=== PATIENT | female | born 1970 | race Caucasian/White ===

== ENCOUNTER 2017-09-01 13:34 | Emergency (ER) | payer OTHER ==
[~2017-09-01] VITALS: Ht 165.1 cm; Wt 103.4 kg
[~2017-09-01 13:34] MED LIST: BENICAR HCT 401 EAC1 PO; BUPROPION HCL100 MG PO; CITALOPRAM HBR40 MG PO; DICLOFENAC SODI75 MG PO; FENOFIBRATE160 MG PO; FIORICET 50-321 EACH PO; FLEXERIL10 MG PO; HYOSCYAMINE0.125 M1 SL; NAPROSYN500 MG PO; NORCO 5-325 TA1 EACH PO; OMEPRAZOLE20 MG PO; SINGULAIR10 MG PO; WELLBUTRIN SR100 MG PO
[2017-09-01] MEDS ORDERED: KETOROLAC TROME10 MG PO (13:57)
[2017-09-01] MEDS ORDERED: ALPRAZOLAM0.5 MG PO (13:57)
[2017-09-01] MEDS ORDERED: LOSARTAN-HCTZ1 EAC1 PO (13:58)
[2017-09-01] MEDS ORDERED: FLUOXETINE HCL60 MG PO (13:58)
== END 2017-09-01 15:10 | disposition home or self-care (01) ==
LOC: ED 13:34
DX: G43.909 Migraine, unspecified, not intractable, without status migrainosus (principal); F32.9 Major depressive disorder, single episode, unspecified; I10 Essential (primary) hypertension; Z88.0 Allergy status to penicillin; Z88.2 Allergy status to sulfonamides; Z88.5 Allergy status to narcotic agent; Z79.899 Other long term (current) drug therapy
CPT/HCPCS: 96374; 96375; 99282; J1200; J2405; J2765

== ENCOUNTER 2018-08-10 11:54 | Emergency (ER) | payer OTHER ==
[~2018-08-10] VITALS: Ht 165.1 cm; Wt 103.4 kg
[~2018-08-10 11:54] MED LIST changes: +ALPRAZOLAM0.5 MG PO; +FLUOXETINE HCL60 MG PO; +KETOROLAC TROME10 MG PO; +LOSARTAN-HCTZ1 EAC1 PO
[2018-08-10] MEDS ORDERED: MAXALT10 MG PO (13:33)
== END 2018-08-10 13:43 | disposition home or self-care (01) ==
LOC: ED 11:54
DX: G43.909 Migraine, unspecified, not intractable, without status migrainosus (principal); I10 Essential (primary) hypertension; F32.9 Major depressive disorder, single episode, unspecified; Z90.49 Acquired absence of other specified parts of digestive tract; Z88.0 Allergy status to penicillin; Z88.1 Allergy status to other antibiotic agents; Z88.5 Allergy status to narcotic agent; Z88.2 Allergy status to sulfonamides; Z79.899 Other long term (current) drug therapy
CPT/HCPCS: 96372; 99283-25; J1200; J1630; J1885

== ENCOUNTER 2020-05-29 18:11 | Emergency (ER) | payer OTHER ==
[~2020-05-29] VITALS: Ht 165.1 cm; Wt 114.8 kg
[~2020-05-29 18:11] MED LIST changes: +MAXALT10 MG PO
--- OUTSIDE RECORDS SUMMARY | 2020-05-29 18:14 | XMS ---
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 Elen has no Care Guidelines for this patient. Marilyn VISIT COUNT (12 MO.) 1 JORI Butt TOTAL 1 NOTE: Visits indicate total known visits. ED/UCC VISIT TRACKING (12 MO.) 05/29/2020 18:12 J[facility]I [place] TYPE: Emergency COMPLAINT: - HIGH B/P, NAUSEA, HEADACHE INPATIENT VISIT TRACKING (12 MO.) No inpatient visits to display in this time frame [email or web address]
[2020-05-29] MEDS ORDERED: ISOSORBIDE MONO60 MG PO (18:32)
[2020-05-29] MEDS ORDERED: METOPROLOL SUC100 MG PO (18:32)
[2020-05-29] MEDS ORDERED: ASPIRIN325 MG PO (18:33)
--- NOTE | 2020-05-30 11:01 | EKG ---
[facility] [address] [place] [address] Signed Sinus bradycardia Nonspecific T wave abnormality Prolonged QT Abnormal ECG No previous ECGs available Confirmed by EDUARDO COHEN DO ([id number]) on 05/30/2020 11:00:55 AM Electronically Signed By: EDUARDO COHEN DO 05/30/20 110 PATIENT NAME: JENN MCLEOD Electrocardiogram DATE OF : 68 PHYSICIAN: EDUARDO COHEN DO REPORT #: [id number] REPORT IS CONFIDENTIAL AND NOT TO BE RELEASED WITHOUT AUTHORIZATION
== END 2020-05-29 21:02 | disposition home or self-care (01) ==
LOC: ED 18:11
DX: I10 Essential (primary) hypertension (principal); R51.9 Headache, unspecified; F32.9 Major depressive disorder, single episode, unspecified; G43.909 Migraine, unspecified, not intractable, without status migrainosus; Z88.0 Allergy status to penicillin; Z88.8 Allergy status to other drugs, medicaments and biological substances; Z88.5 Allergy status to narcotic agent; Z88.2 Allergy status to sulfonamides; Z79.899 Other long term (current) drug therapy
CPT/HCPCS: 70450; 80053; 85025; 85651; 93005; 93010; 96374; 96375; 99284-25; J1200; J1885; J2765

== ENCOUNTER 2021-08-18 03:26 | Observation (INO) | payer OTHER ==
[~2021-08-18] VITALS: Ht 165.1 cm; Wt 117.8 kg
[~2021-08-18 03:26] MED LIST changes: +ASPIRIN325 MG PO; +CYCLOBENZAPRINE10 MG PO; -FLEXERIL10 MG PO; +ISOSORBIDE MONO60 MG PO; +METOPROLOL SUC100 MG PO
--- OUTSIDE RECORDS SUMMARY | 2021-08-18 03:34 | XMS ---
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 EReese VISIT COUNT (12 MO.) 1 JORI Butt TOTAL 1 NOTE: Visits indicate total known visits. ED/UCC VISIT TRACKING (12 MO.) 08/18/2021 03:27 [facility] [place] TYPE: Emergency COMPLAINT: - RIGHT SIDE PAIN, NAUSEA, VOMITING INPATIENT VISIT TRACKING (12 MO.) No inpatient visits to display in this time frame [email or web address]
[2021-08-18] MEDS ORDERED: LOSARTAN POTAS100 MG PO (03:46)
[2021-08-18] MEDS ORDERED: ZOLPIDEM TARTRA10 MG PO (08:25)
[2021-08-18] MEDS ORDERED: FLUOXETINE HCL20 MG PO (08:26)
[2021-08-18] MEDS ORDERED: ISOSORBIDE MON120 MG PO (08:27)
[2021-08-18] MEDS ORDERED: TRIAMTERENE-HC1 EAC2 PO (08:42)
[2021-08-18] MEDS ORDERED: OMEPRAZOLE40 MG PO (08:42)
[2021-08-20] MEDS ORDERED: METOPROLOL SUCC25 MG PO (13:10)
== END 2021-08-20 13:55 | disposition home or self-care (01) ==
LOC: ED 03:26 → MS 03:28
PROVIDERS: ADMIT Internal Medicine; ATTEND Internal Medicine
DX: N17.9 Acute kidney failure, unspecified (principal); E86.0 Dehydration; I10 Essential (primary) hypertension; F39 Unspecified mood [affective] disorder; G43.909 Migraine, unspecified, not intractable, without status migrainosus; K21.9 Gastro-esophageal reflux disease without esophagitis; Z88.0 Allergy status to penicillin; Z88.1 Allergy status to other antibiotic agents; Z88.2 Allergy status to sulfonamides; Z88.5 Allergy status to narcotic agent; Z20.822 Contact with and (suspected) exposure to COVID-19
CPT/HCPCS: 36415; 74176; 80048; 80076; 81001; 82570; 83880; 84156; 85025; C9803; J1170; J1885; J2405; J7030; J7121; U0003

== ENCOUNTER 2022-12-22 06:05 | Day surgery (SDC) | payer OTHER ==
[2022-10-24 16:14] VITALS: BP 160/85
[2022-12-19 14:14] VITALS: BP 129/76
[~2022-12-22] VITALS: Ht 165.1 cm; Wt 122.7 kg
[~2022-12-22 06:05] MED LIST changes: +BUTALB-ACETAMI1 EACH PO; +COZAAR100 MG PO; +FLUOXETINE HCL20 MG PO; +HYDRALAZINE HCL25 MG PO; +HYDROCHLOROTHIA25 MG PO; +ISOSORBIDE MON120 MG PO; +K-TAB ER20 MEQ PO; +LOSARTAN POTAS100 MG PO; +METFORMIN HCL500 MG PO; +METOPROLOL SUCC25 MG PO; +MOVE FREE ULTR1 EAC2 PO; +OMEPRAZOLE40 MG PO; +OSTERA TABLET1 EACH PO; +TORSEMIDE10 MG PO; +TRIAMTERENE-HC1 EAC2 PO; +ZOLPIDEM TARTRA10 MG PO
[2022-12-22 06:19] VITALS: BP 133/78
--- NOTE | 2022-12-22 08:16 | NUR ---
12/22/22 0816 Galina Jama 0809-PATIENT ARRIVED TO PACU ON RA RR EVEN PATIENT AWAKE DROWSY DENIES PAIN OR NAUSEA. REPORTS "JUST TIRED" IVF INFUSING. 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 NO DRAINAGE TO STEPHEN PAD.
[2022-12-22 08:40] VITALS: BP 106/68
--- NOTE | 2022-12-22 14:25 | OR ---
[address] [address] Signed DATE OF OPERATION: 12/22/2022 SURGEON: Amandeep Lai MD Patient of Dr. Lai. PREOPERATIVE DIAGNOSIS: Vaginal mass. POSTOPERATIVE DIAGNOSIS: Vaginal mass. PROCEDURE: Excision of vaginal mass. PRODUCT APPLICATIONS ENGINEER: Essence Puckett DO ANESTHESIA: MAC. ESTIMATED BLOOD LOSS: Less than 5 mL. SPECIMEN: Vaginal mass. DRAINS: None. Cultures sent for aerobic and anaerobic. PACKING: None. FINDINGS: External genitalia normal, cervix normal, vagina normal with approximately 1.5 cm firm mass with thick stalk arising from the vaginal mucosa at about 10 o'clock deep in the vagina near the cervix. Pus was noted in the mass during the excision. COMPLICATIONS: None. Electronically Signed By: AMANDEEP LAI MD 12/22/22 1425 PATIENT NAME: JENN MCLEOD OPERATIVE REPORT DATE OF : 68 REPORT #: [id number] PHYSICIAN: AMANDEEP LAI MD PCP: ANNIKA AVILES PA-C REPORT IS CONFIDENTIAL AND NOT TO BE RELEASED WITHOUT AUTHORIZATION [facility] [address] [place] [id number] Signed DESCRIPTION OF PROCEDURE: The patient was brought to the operating room, placed in the supine position. After adequate MAC was obtained, the patient was placed in dorsal lithotomy position, prepped and draped in usual sterile fashion. Straight cath was used to empty her bladder. Weighted speculum was placed in the vagina and [place] retractors inserted in the vagina to expose the vaginal mass. The vaginal mass was examined and 0 Monocryl Endoloop was then used to loop the mass at the base of the stalk in the vaginal mucosa and was tightened in place. The mass was then excised using curved Ace scissors. Small amount of pus was noted, so the pus was cultured for aerobic and anaerobic bacteria. A uphpbo-gu-cdoai stitch of 2-0 Vicryl was used superficially to close and support the Endoloop. Both tags were then cut with suture scissors. Area observed and noted to have good hemostasis and good closure noted. At this point, all instruments were removed from the vagina. The patient tolerated the procedure well, went to the recovery room in good condition. The sponge, needle and instrument count was correct at the end of procedure. Cultures sent to the lab and the specimen sent to pathology. Amandeep Lai MD MJB/MODL /[id number] cc: MI Urias Copies: ~ Electronically Signed By: AMANDEEP LAI MD 12/22/22 1425 PATIENT NAME: JENN MCLEOD OPERATIVE REPORT DATE OF : [birth year] REPORT #: [id number] PHYSICIAN: AMANDEEP LAI MD PCP: ANNIKA AVILES PA-C REPORT IS CONFIDENTIAL AND NOT TO BE RELEASED WITHOUT AUTHORIZATION
--- NOTE | 2022-12-26 15:44 | PATH ---
[facility] [address] [place], [place] [address] Signed SPECIMEN(S): A VAGINAL MASS SPECIMEN SOURCE: A. VAGINAL MASS CLINICAL HISTORY: Excision of vaginal cystic mass. FINAL PATHOLOGIC DIAGNOSIS: Vaginal cystic mass, excision: - Benign squamous epidermal inclusion cyst with focal acute and chronic inflammation and focal features consistent with cyst rupture. JVR:[facility]:C2NR MICROSCOPIC EXAMINATION: Histologic sections of all submitted blocks are examined by light microscopy. These findings, together with the gross examination, support the pathologic diagnosis. A CK AE1/3 immunostain is performed with appropriate controls and is negative for occult carcinoma. A CD68 immunostain is performed with appropriate controls and highlights the histiocytes in the area of concern. JVR:sm GROSS DESCRIPTION: The specimen, labeled and designated "Engblom, A," and designated on the requisition "vaginal mass," is received in formalin and consists of one piece of melissa-pink, soft, membranous tissue (1.4 x 1.0 x 0.4 cm). The specimen is inked blue, and the tissue is serially sectioned and submitted entirely in cassette (A1). AC (under the direct supervision of a pathologist) The Gross Description was prepared using a voice recognition system. The report was reviewed for accuracy; however, sound-alike word errors, addition and/or deletions may occur. If there is any question about this report, please contact Client Services. ADDITIONAL NOTES: Immunohistochemical and/or in situ hybridization studies were performed on this case with the appropriate positive controls that react as expected. This test was developed and its performance characteristics determined by [facility]. It has not been cleared or PATIENT NAME: JENN MCLEOD PATHOLOGY DATE OF : [birth year] REPORT #: [id number] PHYSICIAN: LETICIA PATHOLOGY PCP: ANNIKA AVILES PA-C REPORT IS CONFIDENTIAL AND NOT TO BE RELEASED WITHOUT AUTHORIZATION [facility] [address] [place] [address] Signed approved by the U.S. Food and Drug Administration. The FDA has determined that such clearance or approval is not necessary. This test is used for clinical purposes. It should not be regarded as investigational or for research. [facility] is certified under the Clinical Laboratory Improvement Amendments of 1988 (CLIA) as qualified to perform high complexity clinical laboratory testing. This assay has not been validated for specimens that have been decalcified. PERFORMING LABORATORY: The technical component was performed by [facility], [address] [place] [id number] (CLIA# [id number]). Professional interpretation was performed by [facility] - [facility], [address] [place] [id number] (CLIA#: [id number]). Diagnostician: Serg Clancy MD Pathologist Electronically Signed 12/26/2022 Copies: ~ PATIENT NAME: JENN MCLEOD PATHOLOGY DATE OF : [birth year] REPORT #: [id number] PHYSICIAN: LETICIA SAGE PCP: ANNIKA AVILES PA-C REPORT IS CONFIDENTIAL AND NOT TO BE RELEASED WITHOUT AUTHORIZATION
== END 2022-12-22 08:50 | disposition home or self-care (01) ==
LOC: OPS 06:05 → DS 06:05 → OPS 07:30
PROVIDERS: ATTEND General Practice
PROC: 0UBGXZZ Excision of Vagina, External Approach (ICD-10-PCS; principal; 2022-12-22 07:30)
DX: N89.8 Other specified noninflammatory disorders of vagina (principal); I10 Essential (primary) hypertension; K21.9 Gastro-esophageal reflux disease without esophagitis; Z88.5 Allergy status to narcotic agent; Z88.0 Allergy status to penicillin; Z88.2 Allergy status to sulfonamides; Z88.1 Allergy status to other antibiotic agents; Z79.899 Other long term (current) drug therapy
CPT/HCPCS: 00940; 87205; J0131; J1644; J1885; J2250; J2405; J2704; J3010; J3490; J7121

== ENCOUNTER 2023-02-24 09:58 | Day surgery (SDC) | payer OTHER | END 2023-02-24 12:22 | disposition home or self-care (01) | LOC: DS 09:58 | PROC: 0DBC8ZZ Excision of Ileocecal Valve, Via Natural or Artificial Opening Endoscopic (ICD-10-PCS; principal; 2023-02-24) | PROC: 0DBN8ZZ Excision of Sigmoid Colon, Via Natural or Artificial Opening Endoscopic (ICD-10-PCS; 2023-02-24) | DX: Z12.11 Encounter for screening for malignant neoplasm of colon (principal); Z80.0 Family history of malignant neoplasm of digestive organs; K57.30 Diverticulosis of large intestine without perforation or abscess without bleeding; E66.01 Morbid (severe) obesity due to excess calories; Z90.49 Acquired absence of other specified parts of digestive tract; Z68.41 Body mass index [BMI] 40.0-44.9, adult; K62.1 Rectal polyp; D12.0 Benign neoplasm of cecum ==

== ENCOUNTER 2024-12-21 22:43 | Emergency (ER) | payer OTHER ==
[~2024-12-21] VITALS: Ht 165.1 cm; Wt 106.6 kg
[~2024-12-21 22:43] MED LIST changes: +ESTRADIOL0.5 MG PO; +MEDROXYPROGEST2.5 MG PO; +METFORMIN HCL500 M1 PO; +MONTELUKAST SOD10 MG PO; +NORVASC10 MG PO; +SPIRONOLACTONE25 MG PO; +WEGOVY1 MG/0.5 M
--- OUTSIDE RECORDS SUMMARY | 2024-12-21 22:50 | XMS ---
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 Elen has no Care Guidelines for this patient. Marilyn [facility]12 MO.) [facility] NOTE: Visits indicate total known visits. ED/UCC VISIT TRACKING (12 MO.) 12/21/2024 22:44 [facility] [place] TYPE: Emergency COMPLAINT: - HIGH BP 12/15/2024 19:[address] [facility] [place] TYPE: Emergency COMPLAINT: - HIGH BP/DOUBLE VISION DIAGNOSES: - Allergy status to narcotic agent - Allergy status to other antibiotic agents - Allergy status to penicillin - Allergy status to sulfonamides - Essential (primary) hypertension - Hypertensive urgency - Migraine, unspecified, not intractable, without status migrainosus - Other skilled nursing (current) drug therapy - Other visual disturbances INPATIENT VISIT TRACKING (12 MO.) No inpatient visits to display in this time frame [email or web address]
[2024-12-21] MEDS ORDERED: ENALAPRILAT DIHYDRATE 1.25 MG/ML VIAL IV ONE (23:30)
[2024-12-22] MEDS ORDERED: ENALAPRILAT DIHYDRATE 1.25 MG/ML VIAL IV ONE (00:15)
[2024-12-22] MEDS ORDERED: FUROSEMIDE 20 MG/2 ML VIAL IV ONE (00:45)
[2024-12-22] MEDS ORDERED: METOPROLOL SUCC50 MG PO (01:24)
[2024-12-22] MEDS ORDERED: SPIRONOLACTONE50 MG PO (01:24)
[2024-12-22 01:42] VITALS: BP 155/101
== END 2024-12-22 01:40 | disposition home or self-care (01) ==
LOC: ED 22:43
DX: I10 Essential (primary) hypertension (principal); Z79.899 Other long term (current) drug therapy; Z88.0 Allergy status to penicillin; Z88.1 Allergy status to other antibiotic agents; Z88.2 Allergy status to sulfonamides; Z88.5 Allergy status to narcotic agent; G43.909 Migraine, unspecified, not intractable, without status migrainosus
CPT/HCPCS: 96374; 96375; 96376; 99282; J1938